=== PATIENT | male | born 1950 | race Caucasian/White ===

== ENCOUNTER 2021-01-10 17:57 | Inpatient (IN) ==
[2021-01-10 19:55] LABS: Basophils # 0.1 K/mcL (0.0-0.2); Basophils % 0.6 %; Eosinophils # 0.3 K/mcL (0.0-0.6); Eosinophils % 2.4 %; Hematocrit 44.9 % (37.5-50.1); Hemoglobin 15.6 g/dL (12.9-16.9); Immature Granulocytes % 0.4 % (0-4); Lymphocytes # 2.7 K/mcL (0.6-4.6); Lymphocytes % 21.6 %; Mean Corpuscular HGB Conc 34.7 g/dL (31.6-35.5); Mean Corpuscular Hemoglobin 30.5 pg (28.0-33.3); Mean Corpuscular Volume 87.9 fL (83.0-100.0); Mean Platelet Volume 10.9 fL (9.4-12.4); Monocytes # 0.8 K/mcL (0.0-1.3); Monocytes % 6.7 %; Neutrophils # 8.4 K/mcL (1.6-8.9); Platelet Count 212 K/mcL (140-400); Red Blood Count 5.11 M/mcL (4.19-5.50); Red Cell Distribution Width 12.5 % (11.5-14.5); Segmented Neutrophils % 68.3 %; White Blood Count 12.3 K/mcL (4.3-11.1)
[2021-01-10] MEDS ORDERED: Isovue-370 500 ML BOTTLE IVP ONE (20:05)
[2021-01-10 20:13] LABS: BUN/Creatinine Ratio 15 (6-26); Blood Urea Nitrogen 16 mg/dL (8-23); Calcium 9.6 mg/dL (8.6-10.3); Carbon Dioxide 27 mEq/L (23-29); Chloride 100 mEq/L (98-107); Glucose 108 mg/dL (70-105); Osmolality,Calculated 286 (280-300); Potassium 3.2 mEq/L (3.5-5.1); Sodium 137 mEq/L (136-145); Troponin I < 0.03 ng/mL (< 0.04); eGFR For African Americans > 60 (> 60); eGFR For Non-African Americans > 60 (> 60)
[2021-01-10 20:17] LABS: INR 1.2; Prothrombin Time 13.9 Seconds (9.4-12.1)
[2021-01-10 20:20] LABS: Activated Partial Thrombo Time 31.4 Seconds (26.0-36.0)
[2021-01-10] MEDS ORDERED: *HR* Heparin 5,000 UNIT/ML VIAL IVP PRN ×2 (20:52)
[2021-01-10] MEDS ORDERED: *HR* Heparin 5,000 UNIT/ML VIAL IVP ONE (20:52)
[2021-01-10 21:18] LABS: Hematocrit 42.6 % (37.5-50.1); Mean Corpuscular HGB Conc 35.2 g/dL (31.6-35.5); Mean Platelet Volume 10.6 fL (9.4-12.4); Platelet Count 178 K/mcL (140-400); Red Blood Count 4.84 M/mcL (4.19-5.50); Red Cell Distribution Width 12.5 % (11.5-14.5); White Blood Count 11.2 K/mcL (4.3-11.1)
[2021-01-10] MEDS: Heparin 25,000UNIT/250ML 1/2NS 25,000 UNIT/250 ML IV.SOLN IVC SCH (21:24)
[2021-01-10 21:28] LABS: INR 1.2; Prothrombin Time 13.9 Seconds (9.4-12.1)
[2021-01-10 21:30] LABS: Heparin anti-factor XA UFH < 0.04 IU/mL (0.30-0.70)
[2021-01-10] MEDS ORDERED: Naloxone 0.4 MG/ML INJ IVP PRN (22:50)
[2021-01-11] MEDS ORDERED: *HR* Dextrose 50 % in Water (Syg) 50 ML SYRINGE IVP PRN (00:02)
[2021-01-11] MEDS ORDERED: D5% in Water 1,000 ML IVC PRN (00:02)
[2021-01-11] MEDS ORDERED: Dextrose Gel 15 GM/37.5 ML TUBE PO PRN ×2 (00:02)
[2021-01-11] MEDS ORDERED: Perflutren Lipid Microsphere 1.3 ML in 0.9 % Sodium Chloride 8.7 ML IVP PRN (00:55)
[2021-01-11] MEDS ORDERED: Potassium Chloride Elixir 20 MEQ/15 ML UDC PO ONE (01:11)
[2021-01-11 02:19] LABS: Adenovirus Not Detected (Not Detect); Bordetella Pertussis Not Detected (Not Detect); Chlamydophila pneumoniae Not Detected (Not Detect); Coronavirus 229E Not Detected (Not Detect); Coronavirus HKU1 Not Detected (Not Detect); Coronavirus NL63 Not Detected (Not Detect); Coronavirus OC43 Not Detected (Not Detect); Human Metapneumovirus Not Detected (Not Detect); Human Rhinovirus/Enterovirus Not Detected (Not Detect); Influenza A Subtype 2009 H1 Not Detected (Not Detect); Influenza B Not Detected (Not Detect); Mycoplasma pneumoniae Not Detected (Not Detect); Parainfluenza Virus 1 Not Detected (Not Detect); Parainfluenza Virus 2 Not Detected (Not Detect); Parainfluenza Virus 3 Not Detected (Not Detect); Parainfluenza Virus 4 Not Detected (Not Detect); Respiratory Syncytial Virus Not Detected (Not Detect); SARS-CoV-2 Not Detected (Not Detect)
[2021-01-11 04:37] LABS: Basophils # 0.1 K/mcL (0.0-0.2); Basophils % 0.5 %; Eosinophils # 0.3 K/mcL (0.0-0.6); Eosinophils % 2.9 %; Hematocrit 40.5 % (37.5-50.1); Hemoglobin 13.9 g/dL (12.9-16.9); Immature Granulocytes % 0.6 % (0-4); Lymphocytes # 2.9 K/mcL (0.6-4.6); Lymphocytes % 28.6 %; Mean Corpuscular HGB Conc 34.3 g/dL (31.6-35.5); Mean Corpuscular Hemoglobin 30.5 pg (28.0-33.3); Mean Corpuscular Volume 88.8 fL (83.0-100.0); Monocytes # 0.7 K/mcL (0.0-1.3); Monocytes % 6.7 %; Neutrophils # 6.1 K/mcL (1.6-8.9); Platelet Count 190 K/mcL (140-400); Red Blood Count 4.56 M/mcL (4.19-5.50); Red Cell Distribution Width 12.6 % (11.5-14.5); Segmented Neutrophils % 60.7 %; White Blood Count 10.1 K/mcL (4.3-11.1)
[2021-01-11 04:45] LABS: INR 1.4; Prothrombin Time 15.6 Seconds (9.4-12.1)
[2021-01-11 05:10] LABS: BUN/Creatinine Ratio 15 (6-26); Blood Urea Nitrogen 14 mg/dL (8-23); Calcium 8.9 mg/dL (8.6-10.3); Carbon Dioxide 23 mEq/L (23-29); Chloride 105 mEq/L (98-107); Glucose 146 mg/dL (70-105); Osmolality,Calculated 293 (280-300); Potassium 4.3 mEq/L (3.5-5.1); Sodium 140 mEq/L (136-145); eGFR For African Americans > 60 (> 60); eGFR For Non-African Americans > 60 (> 60)
[2021-01-11] MEDS: Insulin LISPRO 300 UNITS/3 ML VIAL SUBQ SCH ×3 (08:04→17:08)
[2021-01-11] MEDS: Heparin 25,000UNIT/250ML 1/2NS 25,000 UNIT/250 ML IV.SOLN IVC SCH (14:05)
[2021-01-11] MEDS: Apixaban 5 MG TABLET PO SCH (21:00)
[2021-01-12] MEDS ORDERED: Cholecalciferol (D-3) 1,000 UNIT (25MCG) TABLET PO SCH (09:00)
[2021-01-12] MEDS ORDERED: Aspirin Enteric Coated 81 MG Tablet PO SCH (09:00)
[2021-01-12] MEDS ORDERED: allopurinoL 100 MG TABLET PO SCH (09:00)
[2021-01-12] MEDS ORDERED: VIT A PO SCH (09:00)
[2021-01-12] MEDS ORDERED: VIT E PO SCH (09:00)
[2021-01-12] MEDS ORDERED: ZINC PO SCH (09:00)
[2021-01-12] MEDS ORDERED: Losartan/HCTZ 50-12.5 TABLET PO SCH (09:00)
[2021-01-12] MEDS ORDERED: VIT C PO SCH (09:00)
[2021-01-12] MEDS ORDERED: COPPER PO SCH (09:00)
[2021-01-12] MEDS: Apixaban 5 MG TABLET PO SCH (09:56)
[2021-01-12] MEDS: Insulin LISPRO 300 UNITS/3 ML VIAL SUBQ SCH ×2 (09:57→13:47)
[2021-01-12 11:19] VITALS: BP 113/90; PULSE 59; TEMP 98.1; O2SAT 94
== END 2021-01-12 15:23 | disposition home or self-care (01) | DRG 176 ==
LOC: SUATTDRO → EMEROOARM 17:57 → 3NENU 17:57 → SUATTDRO 22:28 → 3NENU 23:09 → SUATTDRO 01-11 17:42
PROVIDERS: ADMIT Internal Medicine; ATTEND Hospitalist